=== PATIENT | female | born 1950 ===

== ENCOUNTER → 2017-04-30 | Outpatient (CLI) | payer MEDICARE, BC ==
[~2017-04-30] MED LIST: ASPIRIN EC81 MG PO; CALCIUM 600 +1 EAC5 PO; CLARITIN10 MG PO; LEVOTHROID (SY50 MCG PO; LOSARTAN-HCTZ1 EAC1 PO; SENNA-S TABLET1 EACH PO; ZOCOR40 MG PO
== END | disposition disaster alternative care site (69) ==
LOC: LFPA 09:00
DX: Z00.00 Encounter for general adult medical examination without abnormal findings (principal); Z12.4 Encounter for screening for malignant neoplasm of cervix; Z91.89 Other specified personal risk factors, not elsewhere classified
CPT/HCPCS: G0145